=== PATIENT | male | born 1980 | race Caucasian/White ===

== ENCOUNTER 2017-01-15 16:34 | Emergency (ER) | payer OTHER ==
[~2017-01-15] VITALS: Ht 175.3 cm; Wt 77.1 kg
[~2017-01-15 16:34] MED LIST: NAPROSYN500 MG PO
[2017-01-15 16:59] LABS: ABSOLUTE NEUTROPHILS 4.5 thou/uL (1.4-8.2); BASOPHILS 0.8 % (0.0-2.0); EOSINOPHILS 2.2 % (0.0-3.0); HEMATOCRIT 46.3 % (42.0-52.0); HEMOGLOBIN 15.4 gm/dL (14.0-18.0); LYMPHOCYTES 30.8 % (24.0-44.0); MCH 29.4 pg (26.0-34.0); MCHC 33.3 g/dL (28.0-37.0); MCV 88.4 fL (80.0-100.0); MONOCYTES 8.8 % (1.0-8.0); PLATELET COUNT 300 thou/uL (150-400); POLYS 57.4 % (36.0-66.0); RBC 5.24 mil/uL (4.50-6.00); RDW 13.2 % (10.5-14.5); WBC 7.9 thou/uL (4.0-11.0)
[2017-01-15 17:03] LABS: MANUAL DIFF NO
[2017-01-15 17:08] LABS: CALCIUM 9.1 mg/dL (8.5-10.1); CREATININE 1.2 mg/dL (0.7-1.3); POTASSIUM 3.9 mmol/L (3.5-5.1)
[2017-01-15] MEDS ORDERED: BACTRIM DS TAB1 EACH PO (18:58)
[2017-01-15 19:23] VITALS: BP 120/78
== END 2017-01-15 19:24 | disposition home or self-care (01) ==
LOC: ER 16:34
PROVIDERS: Nurse Practitioner
DX: L03.221 Cellulitis of neck (principal)

== ENCOUNTER 2019-01-29 05:28 | Emergency (ER) | payer OTHER ==
[~2019-01-29] VITALS: Ht 180.3 cm; Wt 79.4 kg
[~2019-01-29 05:28] MED LIST changes: +BACTRIM DS TAB1 EACH PO
[2019-01-29 06:18] LABS: HEMATOCRIT 46.9 % (42.0-52.0); HEMOGLOBIN 15.8 gm/dL (14.0-18.0); MCH 29.5 pg (26.0-34.0); MCHC 33.6 g/dL (28.0-37.0); MCV 87.8 fL (80.0-100.0); RBC 5.35 mil/uL (4.50-6.00); RDW 12.9 % (10.5-14.5); WBC 10.8 thou/uL (4.0-11.0)
[2019-01-29 06:26] LABS: ANION GAP 8 mmol/L (7-16); BUN 15 mg/dL (7-18); CALCIUM 8.9 mg/dL (8.5-10.1); CHLORIDE 103 mmol/L (98-107); CO2 25 mmol/L (21-32); CREATININE 1.2 mg/dL (0.7-1.3); GLUCOSE 117 mg/dL (74-106); POTASSIUM 4.3 mmol/L (3.5-5.1); SODIUM 136 mmol/L (136-145)
[2019-01-29 06:36] LABS: LIPASE 250 U/L (73-393); SGOT 27 U/L (15-37); SGPT 36 U/L (30-65); TOTAL BILIRUBIN 0.8 mg/dL (<0.1-1.0); TOTAL PROTEIN 7.8 g/dL (6.4-8.2); TROPONIN-I <0.06 ng/mL (<0.06)
[2019-01-29 06:51] LABS: URINE BILIRUBIN NEGATIVE (Negative); URINE BLOOD NEGATIVE (Negative); URINE CLARITY CLEAR; URINE COLOR YELLOW; URINE GLUCOSE-RANDOM* NEGATIVE (Negative); URINE KETONES NEGATIVE (Negative); URINE LEUKOCYTES-REFLEX NEGATIVE (Negative); URINE NITRITE-REFLEX NEGATIVE (Negative); URINE PROTEIN (DIPSTICK) TRACE (Negative); URINE UROBILINOGEN 0.2 E.U./dl (0.2-1.0)
[2019-01-29] MEDS ORDERED: ZOFRAN4 MG PO (08:01)
[2019-01-29 08:10] VITALS: BP 100/67
== END 2019-01-29 08:10 | disposition home or self-care (01) ==
LOC: ER 05:28
PROVIDERS: Student in an Organized Health Care Education/Training Program
DX: R11.2 Nausea with vomiting, unspecified (principal); R10.13 Epigastric pain; Z98.890 Other specified postprocedural states